=== PATIENT | male | born 1960 | race Caucasian/White ===

== ENCOUNTER 2018-11-09 22:52 | Emergency (ER) | payer OTHER ==
[2018-11-09 22:57] VITALS: BP 129/102
--- NOTE | 2018-11-09 23:11 | ER Report ---
History and Physical Time Seen By MD: 22:53 Hx. of Stated Complaint: patient was chopping wood and accidentally cut his left thumb with a ax HPI/ROS CHIEF COMPLAINT: thumb injury from axe HISTORY OF PRESENT ILLNESS: This is a 58 year old male. He was cutting firewood and accidentally hit left thumb, glancing blow, cut the edge of his thumb. Pain with laceration, but otherwise no pain. Last tetanus was 4 years ago. Allergies: Coded Allergies: No Known Drug Allergies (Unverified , 11/09/18) Home Meds Active Scripts Cephalexin Monohydrate (CEPHALEXIN) 500 Mg Cap, 500 MG PO Q6H, #20 CAP 0 Refills Prov:OSCAR ANDREW MD 11/09/18 Reviewed Nurses Notes: Yes Hx Substance Use Disorder: No Constitutional Vital Sign - Last 24 Hours 11/09/18 22:57 Temp 97.8 Pulse 77 Resp 18 B/P (MAP) 129/102 Pulse Ox 95 O2 Delivery Room Air Physical Exam General: Alert, no acute distress. Skin: Flap like laceration inside of tip of thumb. Musculoskeletal: No loss of function, no tendon compromise, normal motor. Neuro: Normal sensation. Cardio: Normal cap refill. Medical Decision Making ED Course/Re-evaluation ED Course Procedure: Laceration Repair Verbal consent from patient after discussing repair options, risks and benefits. Wound cleaned extensively with Hibiclens and saline. Anesthesia: Digital block 1% lidocaine without epinephrine and 0.5% bupivacaine without epinephrine. Location: Distal left thumb. Length: About 3 cm flap. There were no deep structures involved. No tendon injury was identified. Wound repair: 4 interrupted 5-0 Prolene sutures. The wound repair was simple and performed by myself. Wound care instructions discussed. Sutures need to be removed in 7 days. Cephalexin 500mg four times a day for 5 days. Decision to Disposition Date: Nov 09, 2018 Decision to Disposition Time: 23:52 Depart Departure Latest Vital Signs Vital Signs Date Time Temp Pulse Resp B/P (MAP) Pulse Ox O2 Delivery O2 Flow Rate FiO2 11/09/18 22:57 97.8 77 18 129/102 95 Room Air Impression: Primary Impression: Laceration of thumb Condition: Improved Disposition: HOME OR SELF-CARE New Scripts Cephalexin Monohydrate (CEPHALEXIN) 500 Mg Cap 500 MG PO Q6H, #20 CAP 0 Refills Prov: OSCAR ANDREW MD 11/09/18 Patient Instructions: Laceration (ED) Additional Instructions: Wound Care: Wash the wound once a day with soap and water. Dry the wound and apply a small amount of antibiotic ointment with a clean dressing. If the dressing becomes wet or dirty, repeat cleaning and dressing as above. No soaking the wound; no swimming. Stitches need to be removed in 7 days. Pain Control: Use Tylenol or ibuprofen for pain. Using and ice pack can help reduce swelling. Antibiotic: Cephalexin 500mg 4 times a day for 5 days. Problem Qualifiers Primary Impression: Laceration of thumb Encounter type: initial encounter Damage to nail status: without damage Foreign body presence: without foreign body Laterality: left Qualified Codes: S61.012A - Laceration without foreign body of left thumb without damage to nail, initial encounter OSCAR ANDREW MD Nov 09, 2018 23:11
[2018-11-09] MEDS ORDERED: CEPHALEXIN 500 MG CAP TH 2 CAP/BOTTLE PO ONE (23:55)
[2018-11-09] MEDS ORDERED: CEPH500C24 PO (23:56)
== END 2018-11-10 00:02 | disposition home or self-care (01) ==
LOC: ER 23:22
DX: S61.012A Laceration without foreign body of left thumb without damage to nail, initial encounter (principal); W27.0XXA Contact with workbench tool, initial encounter
CPT/HCPCS: 99283